=== PATIENT | male | born 1990 | race Two or more races ===

== ENCOUNTER → 2021-03-02 08:11 | Outpatient (CLI) | payer OTHER | END | disposition home or self-care (01) | LOC: LAB 08:11 | PROVIDERS: ATTEND Internal Medicine | DX: E03.8 Other specified hypothyroidism (principal); I10 Essential (primary) hypertension; M54.5 Low back pain; Z01.810 Encounter for preprocedural cardiovascular examination; E78.89 Other lipoprotein metabolism disorders; E55.9 Vitamin D deficiency, unspecified; E11.51 Type 2 diabetes mellitus with diabetic peripheral angiopathy without gangrene; E66.8 Other obesity ==

== ENCOUNTER 2021-03-14 10:09 | Outpatient (CLI) | payer OTHER | END 2021-03-14 10:29 | disposition home or self-care (01) | LOC: LAB 10:09 | PROVIDERS: ATTEND Internal Medicine | DX: I10 Essential (primary) hypertension (principal); M54.5 Low back pain; Z01.810 Encounter for preprocedural cardiovascular examination; E03.8 Other specified hypothyroidism; E78.49 Other hyperlipidemia; E55.9 Vitamin D deficiency, unspecified; E11.51 Type 2 diabetes mellitus with diabetic peripheral angiopathy without gangrene; E11.9 Type 2 diabetes mellitus without complications; E66.8 Other obesity; Z12.11 Encounter for screening for malignant neoplasm of colon ==

== ENCOUNTER 2021-06-01 09:40 | Outpatient (CLI) | payer OTHER | END 2021-06-01 09:55 | disposition home or self-care (01) | LOC: PPH VACUNA 09:40 | PROVIDERS: ATTEND Emergency Medicine Pediatric Emergency Medicine | DX: Z23 Encounter for immunization (principal) ==

== ENCOUNTER 2022-07-20 18:48 | Emergency (ER) | payer OTHER ==
[~2022-07-20] VITALS: Ht 180.3 cm; Wt 72.6 kg
== END 2022-07-21 | disposition home or self-care (01) ==
LOC: ER 18:48
DX: T78.40XA Allergy, unspecified, initial encounter (principal); X58.XXXA Exposure to other specified factors, initial encounter

== ENCOUNTER → 2022-07-24 | Emergency (ER) | payer OTHER ==
[~2022-07-24] VITALS: Ht 180.3 cm; Wt 72.6 kg
== END | disposition home or self-care (01) ==
LOC: ER 14:24
DX: Z48.02 Encounter for removal of sutures (principal)

== ENCOUNTER → 2023-01-11 | Emergency (ER) | payer OTHER ==
[~2023-01-11] VITALS: Ht 180.3 cm; Wt 71.2 kg
== END | disposition home or self-care (01) ==
LOC: ER 11:04
DX: R55 Syncope and collapse (principal); Z20.822 Contact with and (suspected) exposure to COVID-19

== ENCOUNTER 2024-08-20 13:09 | Emergency (ER) | payer OTHER ==
[~2024-08-20] VITALS: Ht 177.8 cm; Wt 70.3 kg
[2024-08-20] MEDS ORDERED: 0.9 % SODIUM CHLORIDE 500 ML IV ONE (14:45)
[2024-08-20 16:52] LABS: HEMATOCRIT 44.8 % (39.0-48.0); HEMOGLOBIN 15.1 g/dL (13-16.00); MEAN CELL VOLUME 90.6 fL (80.0-100.00); MEAN CORPUSCULAR HEMOGLOBIN 30.4 pg (27.00-32.0); MEAN CORPUSCULAR HGB CONC 33.6 g/dl (32.0-36.0); PLATELET COUNT 228 K/uL (150-450); RED BLOOD COUNT 4.95 M/uL (4.00-6.00); RED CELL DISTRIBUTION WIDTH 12.2 % (11.5-14.5)
[2024-08-20] MEDS ORDERED: ACETAMINOPHEN 500 MG GEL..CAP PO ONE (16:54)
[2024-08-20 17:10] LABS: PH,URINE 7.5 (5.0-8.0); URINE APPEARANCE Clear; URINE BILIRRUBIN Negative (NEGATIVE); URINE BLOOD Negative; URINE COLOR Yellow; URINE GLUCOSE Negative (NEGATIVE); URINE KETONE Negative (NEGATIVE); URINE LEUKOCYTE Negative; URINE NITRATE Negative; URINE PROTEIN Negative (NEGATIVE)
[2024-08-20 17:14] LABS: URINE BACTERIA 7.3 uL (0.0-1933); URINE EPITHELIAL CELLS 2.8 uL (0.0-38.8); URINE WBC 9.6 uL (0.0-23.2)
[2024-08-20 17:22] LABS: URINE CAST 1.32 uL (0.0-1.40); URINE RBC 1.9 uL (0.0-20.8)
[2024-08-20 17:29] LABS: INR 1.01; PARTIAL THROMBOPLASTIN TIME 26.8 SECONDS (22.0-34.0)
[2024-08-20 17:30] LABS: ALBUMIN 4.4 gm/dL (3.4-5.0); BILIRUBIN TOTAL 0.86 mg/dL (0.3-1.2); CALCIUM 9.7 mg/dL (8.5-10.1); CREATININE SERUM 1.07 mg/dL (0.70-1.30); GFR 79.11; GLOBULINA 3.4 G/DL (2.4-3.5); POTASSIUM 4.79 mEq/L (3.5-5.1); TOTAL PROTEIN 7.8 gm/dL (6.4-8.2)
[2024-08-20] MEDS ORDERED: AMOX-CLAV 875-1 EAC1 PO (18:13)
[2024-08-20] MEDS ORDERED: KETOROLAC TROMETHAMINE 30 MG VIAL IM ONE (18:45)
[2024-08-20] MEDS ORDERED: KETOROLAC TROMETHAMINE 60 MG VIAL IM ONE (18:45)
== END 2024-08-20 20:08 | disposition home or self-care (01) ==
LOC: ER 13:09
PROVIDERS: General Practice
DX: R55 Syncope and collapse (principal); J02.9 Acute pharyngitis, unspecified; E16.1 Other hypoglycemia; Z20.822 Contact with and (suspected) exposure to COVID-19; Z88.8 Allergy status to other drugs, medicaments and biological substances